=== PATIENT | male | born 1975 | race Two or more races ===

== ENCOUNTER 2017-05-27 06:18 | Emergency (ER) | payer MEDICAID ==
[~2017-05-27] VITALS: Ht 167.6 cm; Wt 104.3 kg
[~2017-05-27 06:18] MED LIST: AMLO10TA2 PO; ASPI81CH43 PO; ENAL-3 PO; MET25T PO; PRAV20TA3 PO
[2017-05-27] MEDS ORDERED: ETOMIDATE (2MG/ML) 20ML VIAL IV ONE ×2 (06:30→06:45)
[2017-05-27] MEDS ORDERED: SUCCINYLCHOLINE CHLORIDE 20 MG/ML 10ML VIAL IV ONE ×2 (06:30→06:45)
[2017-05-27] MEDS ORDERED: PROPOFOL 100 ML IV ONE (06:31)
[2017-05-27] MEDS ORDERED: NICARDIPINE 25MG/250ML BAG KIT 250 ML IV ONE (06:32)
[2017-05-27] MEDS ORDERED: PROPOFOL 100 ML IV SCH (06:43)
[2017-05-27] MEDS ORDERED: NICARDIPINE 25MG/250ML BAG KIT 250 ML IV SCH ×3 (06:45→08:00)
[2017-05-27 06:53] LABS: Basophils # (auto) 0 uL; Basophils % (auto) 0.4 % (0.0-2.0); CONDITION Y; Eosinophils # (auto) 0.2 uL; Eosinophils % (auto) 2.5 % (0.0-7.0); Hematocrit 44.8 % (41.0-53.0); Hemoglobin 15.4 g/dL (13.5-17.5); Lymphocytes # (auto) 1.9 uL; Lymphocytes % (auto) 23.5 % (10.0-50.0); Mean Corpuscular Hemoglobin 32.7 pg (28.0-32.0); Mean Corpuscular Hgb Conc. 34.3 g/dL (32.0-36.0); Mean Corpuscular Volume 95.1 fL (80.0-100.0); Mean Platelet Volume 8.1 fL (6.9-10.8); Monocytes # (auto) 0.5 uL; Monocytes % (auto) 6.3 % (0.0-12.0); Neutrophils # (auto) 5.5 uL; Neutrophils % (auto) 67.3 % (37.0-80.0); Platelet Count (auto) 277 10^3/uL (140-450); Red Cell Distribution Width 13.4 % (11.8-14.3); White Blood Cell 8.1 10^3/uL (4.4-10.8)
[2017-05-27 07:02] LABS: Urine Bilirubin Negative (Negative); Urine Blood TRACE /uL (Negative); Urine Color Yellow (Yellow); Urine Glucose 2+ mg/dL (Normal); Urine Ketone Negative (Negative); Urine Nitrite Negative (Negative); Urine RBC 1 /hpf (0 - 3); Urine Urobilinogen Normal (Negative); Urine pH 7.5 (5.0-8.0)
[2017-05-27 07:11] LABS: Albumin 3.8 g/dL (3.4-5.0); Anion Gap 10 (5-15); Aspartate Aminotransferase 16 U/L (15-37); BUN/Creatinine Ratio 11.8; Blood Urea Nitrogen 13 mg/dL (7-18); Calcium 8.7 mg/dL (8.5-10.1); Carbon Dioxide 25 mmol/L (21-32); Chloride 104 mmol/L (98-107); GFR African American 96 mL/min; GFR Non-African American 79 mL/min; Glucose 176 mg/dL (74-106); Magnesium 2.3 mg/dL (1.6-2.6); Sodium 139 mmol/L (136-145)
[2017-05-27 07:16] VITALS: BP 206/135
[2017-05-27 07:16] LABS: Alkaline Phosphatase 79 U/L (45-117); Bilirubin, Total 0.5 mg/dL (0.2-1.0); Total Protein 7.6 g/dL (6.4-8.2)
[2017-05-27 07:29] LABS: INR 0.94 (0.9-1.15); Partial Thromboplastin Time 24.5 sec (22.64-33.71); Prothrombin Time 10.2 sec (9.37-12.3)
== END 2017-05-27 09:43 | disposition short-term general hospital (02) ==
LOC: ER 06:19
DX: I61.9 Nontraumatic intracerebral hemorrhage, unspecified (principal); I21.3 ST elevation (STEMI) myocardial infarction of unspecified site; E78.5 Hyperlipidemia, unspecified; I10 Essential (primary) hypertension
CPT/HCPCS: 31500; 36415; 70450; 80053; 80307; 81001; 83735; 84484; 85025; 85610; 85730; 93005; 99291; J0330; J2704; 94002

== ENCOUNTER 2018-02-13 05:23 | Inpatient (IN) | payer MEDICAID ==
[~2018-02-13] VITALS: Ht 175.3 cm; Wt 92.4 kg
[2018-02-13 06:15] LABS: Basophils # (auto) 0 uL; Basophils % (auto) 0.3 % (0.0-2.0); Eosinophils # (auto) 0.1 uL; Hematocrit 36.5 % (41.0-53.0); Hemoglobin 12.9 g/dL (13.5-17.5); Lymphocytes # (auto) 1.5 uL; Lymphocytes % (auto) 24.1 % (10.0-50.0); Mean Corpuscular Hemoglobin 32.1 pg (28.0-32.0); Mean Corpuscular Hgb Conc. 35.3 g/dL (32.0-36.0); Mean Corpuscular Volume 90.8 fL (80.0-100.0); Monocytes # (auto) 0.7 uL; Monocytes % (auto) 10.9 % (0.0-12.0); Neutrophils # (auto) 4.1 uL; Neutrophils % (auto) 63.7 % (37.0-80.0); Platelet Count (auto) 259 10^3/uL (140-450); Red Blood Cells 4.02 10^6/uL (4.5-5.90); Red Cell Distribution Width 13.2 % (11.8-14.3); White Blood Cell 6.4 10^3/uL (4.4-10.8)
[2018-02-13 06:41] LABS: Alanine Aminotransferase 16 U/L (16-61); Albumin 4.2 g/dL (3.4-5.0); Alkaline Phosphatase 86 U/L (45-117); Anion Gap 11 (5-15); Aspartate Aminotransferase 9 U/L (15-37); BUN/Creatinine Ratio 15.4; Bilirubin, Total 0.5 mg/dL (0.2-1.0); Blood Urea Nitrogen 19 mg/dL (7-18); Calcium 9.1 mg/dL (8.5-10.1); Carbon Dioxide 28 mmol/L (21-32); Chloride 106 mmol/L (98-107); GFR African American 84 mL/min; GFR Non-African American 69 mL/min; Glucose 116 mg/dL (74-106); Potassium 3.9 mmol/L (3.5-5.1); Sodium 145 mmol/L (136-145); Total Protein 8.5 g/dL (6.4-8.2)
[2018-02-13] MEDS ORDERED: SODIUM CHLORIDE 0.9% 1,000 ML IV ONE (07:07)
[2018-02-13] MEDS ORDERED: FUROSEMIDE 20 MG/2 ML VIAL IV ONE (07:15)
[2018-02-13] MEDS ORDERED: LORazepam 2MG/ML-1ML VIAL IV ONE (07:45)
[2018-02-13 08:31] LABS: Urine Bacteria NONE SEEN /hpf (None Seen); Urine Blood Negative /uL (Negative); Urine Specific Gravity 1.011 (1.001-1.035); Urine WBC <1 /hpf (0 - 3)
[2018-02-13] MEDS ORDERED: MORPHINE SULFATE 8mg/ml INJ SDV IV PRN ×2 (09:30)
[2018-02-13] MEDS ORDERED: NITROGLYCERIN 0.4 MG SL TAB SL PRN (09:30)
[2018-02-13] MEDS ORDERED: LORazepam 2MG/ML-1ML VIAL IV PRN (09:30)
[2018-02-13] MEDS ORDERED: LACTULOSE 20Gm/30ML SOLN PO PRN (09:30)
[2018-02-13] MEDS: SODIUM CHLORIDE 0.9% 1,000 ML IV SCH ×2 (09:36→21:53)
[2018-02-13 09:39] LABS: Alcohol, Urine < 3.0 mg/dL (0-5); Amphetamine Screen, Urine NEGATIVE (NEGATIVE); Barbiturate Scree,Urine NEGATIVE (NEGATIVE); Benzodiazephine Screen, Urine POSITIVE (NEGATIVE); Cannabinoid Screen, Urine POSITIVE (NEGATIVE); Cocaine Screen, Urine NEGATIVE (NEGATIVE); Opiate Scree,Urine NEGATIVE (NEGATIVE); Phencyclidine Screen, Urine NEGATIVE (NEGATIVE)
[2018-02-13 09:53] LABS: Folate (Folic Acid) 22.72 ng/mL (5.38-24)
[2018-02-13] MEDS ORDERED: ASPirin 81 mg TAB PO SCH (10:00)
[2018-02-13] MEDS: PRAVASTATIN SODIUM 20 MG TAB PO SCH (10:11)
[2018-02-13] MEDS: ENOXAPARIN SOD 40 MG/0.4 ML SYRINGE SC SCH (10:11)
[2018-02-13] MEDS: ENALAPRIL MALEATE 10 MG TAB PO SCH (10:11)
[2018-02-13] MEDS: amLODIPine BESYLATE 5 MG TAB PO SCH (10:11)
[2018-02-13] MEDS: METOPROLOL TARTRATE 25 MG TAB PO SCH ×2 (10:11→21:03)
[2018-02-13 11:15] VITALS: BP 145/82
[2018-02-13] MEDS: HYDROcodone-ACET 5/325MG TAB PO PRN ×2 (12:28→23:20)
[2018-02-13] MEDS ORDERED: CLON0.3D4 PO (12:44)
[2018-02-13] MEDS ORDERED: DIPH25CA66 PO (12:44)
[2018-02-13] MEDS ORDERED: MINO10TA2 PO (12:44)
[2018-02-13] MEDS ORDERED: CARV25TA55 PO (12:45)
[2018-02-13] MEDS ORDERED: KEP500T PO (12:46)
[2018-02-13] MEDS ORDERED: AML5T GT (12:47)
[2018-02-13] MEDS ORDERED: HYDR-4298 PO (13:01)
[2018-02-13] MEDS ORDERED: HYDR-4683 PO (13:01)
[2018-02-13] MEDS: KETOROLAC TROMETH 30 MG/ML 1ML VIAL IV PRN ×2 (14:29→23:19)
[2018-02-13 17:33] VITALS: BP 132/81
[2018-02-13] MEDS: LORazepam 0.5 MG TAB PO PRN (18:30)
[2018-02-13] MEDS: ACETAMINOPHEN 500 MG TAB PO PRN (21:03)
[2018-02-13] MEDS: TEMAZEPAM 15 MG CAP PO PRN (21:03)
[2018-02-13] MEDS: LEVETIRACETAM 500 MG TAB PO SCH (21:05)
[2018-02-13 22:00] VITALS: BP 159/82
[2018-02-13] MEDS: PROMETHAZINE HCL 25 MG/ML 1ML IV PRN (23:19)
[2018-02-14] MEDS: LORazepam 0.5 MG TAB PO PRN (00:49)
[2018-02-14] MEDS ORDERED: LORazepam 2MG/ML-1ML VIAL IV ONE (01:15)
[2018-02-14] MEDS ORDERED: diphenhdrAMINE HCL 50 MG/1 ML VL IM ONE (01:15)
[2018-02-14 05:00] VITALS: BP 165/91
[2018-02-14] MEDS: PROMETHAZINE HCL 25 MG/ML 1ML IV PRN (05:19)
[2018-02-14] MEDS: KETOROLAC TROMETH 30 MG/ML 1ML VIAL IV PRN (05:20)
[2018-02-14] MEDS: LABETALOL HCL 5 MG/ML ML 20ML VIAL IV PRN ×4 (06:19→19:43)
[2018-02-14 08:50] VITALS: BP 144/48
[2018-02-14 12:28] VITALS: BP 185/91
[2018-02-14] MEDS: amLODIPine BESYLATE 5 MG TAB PO SCH (12:50)
[2018-02-14] MEDS: LEVETIRACETAM 500 MG TAB PO SCH ×2 (12:50→20:10)
[2018-02-14] MEDS: ENALAPRIL MALEATE 10 MG TAB PO SCH (12:50)
[2018-02-14] MEDS: METOPROLOL TARTRATE 25 MG TAB PO SCH ×2 (12:50→20:11)
[2018-02-14] MEDS: PRAVASTATIN SODIUM 20 MG TAB PO SCH (12:50)
[2018-02-14] MEDS: SODIUM CHLORIDE 0.9% 1,000 ML IV SCH ×2 (12:51→22:53)
[2018-02-14] MEDS: ENOXAPARIN SOD 40 MG/0.4 ML SYRINGE SC SCH (12:51)
[2018-02-14] MEDS: DIAZEPAM 5 MG TAB PO SCH ×2 (14:09→21:24)
[2018-02-14 15:38] VITALS: BP 129/81
[2018-02-14 17:00] VITALS: BP_SYST 128; BP_SYST 162; BP_DIAS 106; BP_DIAS 78
[2018-02-14] MEDS: TEMAZEPAM 15 MG CAP PO PRN (20:10)
[2018-02-14] MEDS: ACETAMINOPHEN 500 MG TAB PO PRN (20:10)
[2018-02-14] MEDS: HYDROcodone-ACET 5/325MG TAB PO PRN (20:11)
[2018-02-14 22:00] VITALS: BP 149/98
[2018-02-15 05:00] VITALS: BP 178/128
[2018-02-15] MEDS: LABETALOL HCL 5 MG/ML ML 20ML VIAL IV PRN ×2 (05:08→12:35)
[2018-02-15] MEDS: ACETAMINOPHEN 500 MG TAB PO PRN (05:09)
[2018-02-15] MEDS: HYDROcodone-ACET 5/325MG TAB PO PRN ×2 (05:09→13:33)
[2018-02-15 05:46] VITALS: BP 162/112
[2018-02-15] MEDS: amLODIPine BESYLATE 5 MG TAB PO SCH (05:49)
[2018-02-15 06:41] VITALS: BP 155/102
[2018-02-15 09:00] VITALS: BP 198/113
[2018-02-15] MEDS: ENOXAPARIN SOD 40 MG/0.4 ML SYRINGE SC SCH (09:11)
[2018-02-15] MEDS: METOPROLOL TARTRATE 25 MG TAB PO SCH (09:11)
[2018-02-15] MEDS: ENALAPRIL MALEATE 10 MG TAB PO SCH (09:12)
[2018-02-15] MEDS: LEVETIRACETAM 500 MG TAB PO SCH ×2 (09:12→20:23)
[2018-02-15] MEDS: DIAZEPAM 5 MG TAB PO SCH ×2 (09:23→20:24)
[2018-02-15] MEDS: SODIUM CHLORIDE 0.9% 1,000 ML IV SCH ×2 (11:23→20:27)
[2018-02-15 13:00] VITALS: BP 177/121
[2018-02-15] MEDS ORDERED: cloNIDine HCL 0.1 MG TAB PO ONE (15:30)
[2018-02-15] MEDS ORDERED: MINOXIDIL 10 MG TAB PO ONE (15:30)
[2018-02-15] MEDS ORDERED: MORPHINE SULF INJ 2 MG/ML SYRINGE 1ML IV PRN ×2 (15:30→15:45)
[2018-02-15] MEDS ORDERED: CARVEDILOL 12.5 MG TAB PO ONE (15:30)
[2018-02-15 17:00] VITALS: BP 147/92
[2018-02-15] MEDS: cloNIDine HCL 0.1 MG TAB PO SCH (20:24)
[2018-02-15] MEDS: PRAVASTATIN SODIUM 20 MG TAB PO SCH (20:25)
[2018-02-15] MEDS: GABAPENTIN 100 MG CAP PO SCH (20:25)
[2018-02-15] MEDS: MINOXIDIL 10 MG TAB PO SCH (20:26)
[2018-02-15] MEDS: CARVEDILOL 12.5 MG TAB PO SCH (22:00)
[2018-02-16 04:00] VITALS: BP 156/72
[2018-02-16] MEDS: HYDROcodone-ACET 5/325MG TAB PO PRN ×2 (05:40→19:39)
[2018-02-16] MEDS: ACETAMINOPHEN 500 MG TAB PO PRN (05:40)
[2018-02-16] MEDS: GABAPENTIN 100 MG CAP PO SCH ×3 (05:40→22:06)
[2018-02-16 08:43] VITALS: BP 143/81
[2018-02-16] MEDS: ENOXAPARIN SOD 40 MG/0.4 ML SYRINGE SC SCH (09:01)
[2018-02-16] MEDS: MINOXIDIL 10 MG TAB PO SCH ×2 (09:02→22:07)
[2018-02-16] MEDS: ENALAPRIL MALEATE 10 MG TAB PO SCH (09:02)
[2018-02-16] MEDS: LEVETIRACETAM 500 MG TAB PO SCH ×2 (09:02→22:09)
[2018-02-16] MEDS: amLODIPine BESYLATE 5 MG TAB PO SCH (09:03)
[2018-02-16] MEDS: DIAZEPAM 5 MG TAB PO SCH ×2 (09:03→22:12)
[2018-02-16] MEDS: cloNIDine HCL 0.1 MG TAB PO SCH ×2 (09:03→22:07)
[2018-02-16] MEDS: CARVEDILOL 12.5 MG TAB PO SCH ×2 (09:04→22:08)
[2018-02-16 12:43] VITALS: BP 104/66
[2018-02-16] MEDS: SODIUM CHLORIDE 0.9% 1,000 ML IV SCH (14:47)
[2018-02-16 17:11] VITALS: BP 106/63
[2018-02-16 20:56] VITALS: BP 124/75
[2018-02-16] MEDS: PRAVASTATIN SODIUM 20 MG TAB PO SCH (22:08)
[2018-02-17] MEDS: SODIUM CHLORIDE 0.9% 1,000 ML IV SCH ×2 (02:06→14:04)
[2018-02-17 04:51] VITALS: BP 112/83
[2018-02-17] MEDS: GABAPENTIN 100 MG CAP PO SCH ×2 (05:56→14:21)
[2018-02-17] MEDS: HYDROcodone-ACET 5/325MG TAB PO PRN (05:57)
[2018-02-17 09:00] VITALS: BP 132/75
[2018-02-17] MEDS ORDERED: GAB100C PO (10:26)
[2018-02-17] MEDS: LEVETIRACETAM 500 MG TAB PO SCH (10:33)
[2018-02-17] MEDS: ENOXAPARIN SOD 40 MG/0.4 ML SYRINGE SC SCH (10:33)
[2018-02-17] MEDS: CARVEDILOL 12.5 MG TAB PO SCH (10:34)
[2018-02-17] MEDS: ENALAPRIL MALEATE 10 MG TAB PO SCH (10:35)
[2018-02-17] MEDS: amLODIPine BESYLATE 5 MG TAB PO SCH (10:35)
[2018-02-17] MEDS: MINOXIDIL 10 MG TAB PO SCH (10:36)
[2018-02-17] MEDS: cloNIDine HCL 0.1 MG TAB PO SCH (10:36)
[2018-02-17] MEDS: DIAZEPAM 5 MG TAB PO SCH (12:21)
[2018-02-17 12:28] VITALS: BP 120/76
[2018-02-17 13:59] VITALS: BP 120/76
[2018-02-17 17:00] VITALS: BP 128/74
== END 2018-02-17 17:45 | disposition home health service (06) | DRG 52 ==
LOC: EDBD 05:23 → ER 05:26 → TELE 05:27 → TELE-EAST 11:36
PROVIDERS: ADMIT Internal Medicine; ATTEND Internal Medicine
DX: G93.41 Metabolic encephalopathy (principal); I42.9 Cardiomyopathy, unspecified; F01.50 Vascular dementia, unspecified severity, without behavioral disturbance, psychotic disturbance, mood disturbance, and anxiety; G93.89 Other specified disorders of brain; G40.409 Other generalized epilepsy and epileptic syndromes, not intractable, without status epilepticus; E78.5 Hyperlipidemia, unspecified; F12.90 Cannabis use, unspecified, uncomplicated; F15.93 Other stimulant use, unspecified with withdrawal; F17.200 Nicotine dependence, unspecified, uncomplicated; F41.9 Anxiety disorder, unspecified; I10 Essential (primary) hypertension; I25.10 Atherosclerotic heart disease of native coronary artery without angina pectoris; I69.351 Hemiplegia and hemiparesis following cerebral infarction affecting right dominant side; Z79.899 Other long term (current) drug therapy; Z82.3 Family history of stroke; Z82.49 Family history of ischemic heart disease and other diseases of the circulatory system; Z83.3 Family history of diabetes mellitus; Z98.2 Presence of cerebrospinal fluid drainage device; Z79.82 Long term (current) use of aspirin
CPT/HCPCS: 36415; 70450; 71045; 80053; 80307; 80320; 81001; 82550; 82607; 82746; 83605; 83880; 84443; 84484; 85025; 85652; 87040; 87081; 96372; 96374; 96375; 97110; 97116; 97163; 97530; J1885

== ENCOUNTER 2019-07-14 22:12 | Emergency (ER) | payer MEDICAID ==
[~2019-07-14] VITALS: Ht 170.2 cm; Wt 83.9 kg
[~2019-07-14 22:12] MED LIST changes: +AMLO10TA13 PO; -AMLO10TA2 PO; -ASPI81CH43 PO; +CARV25TA55 PO; +CLON0.3D4 PO; -ENAL-3 PO; +ENAL10TA2 PO; +GAB100C PO; +HYDR-4298 PO; +HYDR-4833 PO; +KEP500T PO; -MET25T PO; +MINO10TA2 PO
[2019-07-14 22:25] VITALS: BP 134/77
== END 2019-07-15 00:38 | disposition left against medical advice (07) ==
LOC: ER 22:12
DX: I10 Essential (primary) hypertension (principal); F41.9 Anxiety disorder, unspecified; Z53.21 Procedure and treatment not carried out due to patient leaving prior to being seen by health care provider

== ENCOUNTER 2019-07-16 10:58 | Emergency (ER) | payer MEDICAID ==
[~2019-07-16] VITALS: Ht 170.2 cm; Wt 81.6 kg
[2019-07-16 11:32] LABS: Basophils # (auto) 0 uL; Basophils % (auto) 0.3 % (0.0-2.0); Eosinophils # (auto) 0 uL; Eosinophils % (auto) 0.3 % (0.0-7.0); Hematocrit 37.5 % (41.0-53.0); Hemoglobin 12.9 g/dL (13.5-17.5); Lymphocytes # (auto) 1.2 uL; Lymphocytes % (auto) 18.2 % (10.0-50.0); Mean Corpuscular Hemoglobin 31.8 pg (28.0-32.0); Mean Corpuscular Hgb Conc. 34.3 g/dL (32.0-36.0); Mean Corpuscular Volume 92.7 fL (80.0-100.0); Monocytes # (auto) 0.5 uL; Monocytes % (auto) 7.4 % (0.0-12.0); Neutrophils # (auto) 4.7 uL; Neutrophils % (auto) 73.8 % (37.0-80.0); Platelet Count (auto) 198 10^3/uL (140-450); Red Blood Cells 4.05 10^6/uL (4.5-5.90); Red Cell Distribution Width 12.8 % (11.8-14.3); White Blood Cell 6.3 10^3/uL (4.4-10.8)
[2019-07-16] MEDS ORDERED: SODIUM CHLORIDE 0.9% 500 ML IV ONE (11:34)
[2019-07-16 11:41] LABS: Calcium 8.7 mg/dL (8.5-10.1)
[2019-07-16 11:47] LABS: Albumin 4.1 g/dL (3.4-5.0); BUN/Creatinine Ratio 21.9; Bilirubin, Total 0.4 mg/dL (0.2-1.0); Total Protein 7.5 g/dL (6.4-8.2)
[2019-07-16 14:03] LABS: Urine Bacteria NONE SEEN /hpf (None Seen); Urine Blood Negative /uL (Negative); Urine Mucus FEW (None Seen); Urine Specific Gravity 1.022 (1.001-1.035); Urine WBC 1 /hpf (0 - 3)
[2019-07-16 16:00] VITALS: BP 130/85
== END 2019-07-16 16:52 | disposition home or self-care (01) ==
LOC: ER 10:58
DX: B34.9 Viral infection, unspecified (principal); E78.5 Hyperlipidemia, unspecified; I10 Essential (primary) hypertension; I25.2 Old myocardial infarction; Z86.73 Personal history of transient ischemic attack (TIA), and cerebral infarction without residual deficits; Z79.899 Other long term (current) drug therapy
CPT/HCPCS: 36415; 71045; 80053; 81001; 85025; 93005; 94761; 99284; J7040

== ENCOUNTER 2019-08-31 11:13 | Emergency (ER) | payer MEDICAID ==
[~2019-08-31] VITALS: Ht 170.2 cm; Wt 80.7 kg
[2019-08-31 13:08] LABS: Basophils # (auto) 0 uL; Basophils % (auto) 0.6 % (0.0-2.0); Eosinophils # (auto) 0 uL; Eosinophils % (auto) 0.4 % (0.0-7.0); Hematocrit 39.2 % (41.0-53.0); Hemoglobin 13.6 g/dL (13.5-17.5); Lymphocytes # (auto) 1.3 uL; Lymphocytes % (auto) 20.9 % (10.0-50.0); Mean Corpuscular Hemoglobin 32.2 pg (28.0-32.0); Mean Corpuscular Hgb Conc. 34.7 g/dL (32.0-36.0); Mean Corpuscular Volume 92.6 fL (80.0-100.0); Monocytes # (auto) 0.6 uL; Monocytes % (auto) 8.6 % (0.0-12.0); Neutrophils # (auto) 4.5 uL; Neutrophils % (auto) 69.5 % (37.0-80.0); Platelet Count (auto) 224 10^3/uL (140-450); Red Blood Cells 4.24 10^6/uL (4.5-5.90); Red Cell Distribution Width 13.2 % (11.8-14.3); White Blood Cell 6.4 10^3/uL (4.4-10.8)
[2019-08-31 13:49] LABS: Anion Gap 7 (5-15); BUN/Creatinine Ratio 13.5; Blood Alcohol < 3.0 mg/dL (0-5); Blood Urea Nitrogen 12 mg/dL (7-18); Carbon Dioxide 26 mmol/L (21-32); Chloride 109 mmol/L (98-107); GFR African American 121 mL/min; GFR Non-African American 100 mL/min; Glucose 131 mg/dL (74-106); Potassium 3.9 mmol/L (3.5-5.1); Sodium 142 mmol/L (136-145)
[2019-08-31] MEDS ORDERED: ACETAMINOPHEN 325 MG TAB PO ONE (17:45)
[2019-08-31 18:45] VITALS: BP 135/89
== END 2019-08-31 19:48 | disposition home or self-care (01) ==
LOC: ER 11:13
DX: F39 Unspecified mood [affective] disorder (principal); I69.30 Unspecified sequelae of cerebral infarction; R45.851 Suicidal ideations; F41.9 Anxiety disorder, unspecified; F32.9 Major depressive disorder, single episode, unspecified; E78.5 Hyperlipidemia, unspecified; I10 Essential (primary) hypertension; I25.2 Old myocardial infarction
CPT/HCPCS: 36415; 80048; 80320; 85025

== ENCOUNTER 2019-11-28 14:15 | Emergency (ER) | payer MEDICARE, MEDICAID ==
[~2019-11-28] VITALS: Ht 170.2 cm; Wt 79.4 kg
[2019-11-28 14:52] VITALS: BP 129/85
[2019-11-28] MEDS ORDERED: KETOROLAC TROMETH 60MG/2ML VIAL IM ONE (15:45)
[2019-11-28] MEDS ORDERED: METHOCARBAMOL 500 MG TAB PO ONE (15:45)
== END 2019-11-28 16:44 | disposition home or self-care (01) ==
LOC: ER 14:15
DX: M51.16 Intervertebral disc disorders with radiculopathy, lumbar region (principal); M54.12 Radiculopathy, cervical region; G89.4 Chronic pain syndrome; I10 Essential (primary) hypertension; E78.5 Hyperlipidemia, unspecified
CPT/HCPCS: 72040; 72100; 96372; 99284; J1885

== ENCOUNTER 2020-02-08 14:32 | Emergency (ER) | payer MEDICARE, MEDICAID ==
[~2020-02-08] VITALS: Ht 170.2 cm; Wt 79.8 kg
[2020-02-08 14:57] LABS: Basophils # (auto) 0 10 ^3/uL (0-0.2); Basophils % (auto) 0.4 % (0.0-2.0); Eosinophils # (auto) 0.1 10 ^3/uL (0-0.8); Eosinophils % (auto) 1.1 % (0.0-7.0); Hematocrit 39.6 % (41.0-53.0); Hemoglobin 13.8 g/dL (13.5-17.5); Lymphocytes # (auto) 2.3 10 ^3/uL (0.4-5.4); Lymphocytes % (auto) 37.9 % (10.0-50.0); Mean Corpuscular Hemoglobin 32.1 pg (28.0-32.0); Mean Corpuscular Hgb Conc. 34.8 g/dL (32.0-36.0); Mean Corpuscular Volume 92.4 fL (80.0-100.0); Monocytes # (auto) 0.6 10 ^3/uL (0-1.3); Monocytes % (auto) 10.7 % (0.0-12.0); Neutrophils % (auto) 49.9 % (37.0-80.0); Platelet Count (auto) 216 10^3/uL (140-450); Red Blood Cells 4.29 10^6/uL (4.5-5.90); Red Cell Distribution Width 12.6 % (11.8-14.3)
[2020-02-08 15:10] VITALS: BP 140/91
[2020-02-08 15:18] LABS: Alanine Aminotransferase 23 U/L (16-61); Albumin 4.1 g/dL (3.4-5.0); Anion Gap 5 (5-15); Aspartate Aminotransferase 7 U/L (15-37); BUN/Creatinine Ratio 16.2; Blood Urea Nitrogen 16 mg/dL (7-18); Carbon Dioxide 28 mmol/L (21-32); Chloride 106 mmol/L (98-107); GFR African American 107 mL/min; GFR Non-African American 88 mL/min; Glucose 116 mg/dL (74-106); Potassium 3.8 mmol/L (3.5-5.1); Sodium 139 mmol/L (136-145)
[2020-02-08 15:23] LABS: Alkaline Phosphatase 71 U/L (45-117); Bilirubin, Total 0.8 mg/dL (0.2-1.0); Total Protein 7.6 g/dL (6.4-8.2)
== END 2020-02-08 16:11 | disposition home or self-care (01) ==
LOC: ER 14:42
DX: G45.9 Transient cerebral ischemic attack, unspecified (principal); R53.1 Weakness; I10 Essential (primary) hypertension; E78.5 Hyperlipidemia, unspecified; E11.9 Type 2 diabetes mellitus without complications; Z95.1 Presence of aortocoronary bypass graft; Z86.73 Personal history of transient ischemic attack (TIA), and cerebral infarction without residual deficits; Z79.899 Other long term (current) drug therapy
CPT/HCPCS: 36415; 70450; 71045; 80053; 84484; 85025

== ENCOUNTER 2022-01-19 10:50 | Emergency (ER) | payer OTHER, MEDICAID ==
[~2022-01-19] VITALS: Ht 170.2 cm; Wt 91.2 kg
[~2022-01-19 10:50] MED LIST changes: +AMLO-496 PO; -AMLO10TA13 PO; +ENAL10TA13 PO; -ENAL10TA2 PO
[2022-01-19 12:25] LABS: Basophils # (auto) 0 10 ^3/uL (0-0.2); Basophils % (auto) 0.2 % (0.0-2.0); Eosinophils # (auto) 0.1 10 ^3/uL (0-0.8); Eosinophils % (auto) 1.5 % (0.0-7.0); Hematocrit 39.9 % (41.0-53.0); Lymphocytes # (auto) 1.5 10 ^3/uL (0.4-5.4); Lymphocytes % (auto) 23.4 % (10.0-50.0); Mean Corpuscular Hemoglobin 33.9 pg (28.0-32.0); Mean Corpuscular Hgb Conc. 35.1 g/dL (32.0-36.0); Mean Corpuscular Volume 96.7 fL (80.0-100.0); Monocytes # (auto) 0.6 10 ^3/uL (0-1.3); Monocytes % (auto) 9.8 % (0.0-12.0); Neutrophils # (auto) 4.1 10 ^3/uL (1.6-8.6); Neutrophils % (auto) 65.1 % (37.0-80.0); Red Blood Cells 4.13 10^6/uL (4.5-5.90); Red Cell Distribution Width 12.5 % (11.8-14.3); White Blood Cell 6.3 10^3/uL (4.4-10.8)
[2022-01-19 12:43] LABS: Albumin 3.9 g/dL (3.4-5.0); Calcium 9.1 mg/dL (8.5-10.1)
[2022-01-19 12:46] LABS: BUN/Creatinine Ratio 14.2; Bilirubin, Total 0.5 mg/dL (0.2-1.0); Total Protein 7.2 g/dL (6.4-8.2)
[2022-01-19 12:53] VITALS: BP 169/106
== END 2022-01-19 13:56 | disposition left against medical advice (07) ==
LOC: ER 10:50
DX: G89.29 Other chronic pain (principal); M79.662 Pain in left lower leg; M79.661 Pain in right lower leg; M79.602 Pain in left arm; M79.601 Pain in right arm; E78.5 Hyperlipidemia, unspecified; I10 Essential (primary) hypertension; Z86.73 Personal history of transient ischemic attack (TIA), and cerebral infarction without residual deficits
CPT/HCPCS: 36415; 80053; 82550; 82553; 85025

== ENCOUNTER 2022-02-06 15:43 | Emergency (ER) | payer OTHER, MEDICAID ==
[~2022-02-06] VITALS: Ht 170.2 cm; Wt 90.7 kg
[2022-02-06 18:47] LABS: Basophils # (auto) 0 10 ^3/uL (0-0.2); Basophils % (auto) 0.7 % (0.0-2.0); Eosinophils # (auto) 0.1 10 ^3/uL (0-0.8); Eosinophils % (auto) 1.1 % (0.0-7.0); Hematocrit 40.9 % (41.0-53.0); Hemoglobin 14.2 g/dL (13.5-17.5); Lymphocytes # (auto) 1.7 10 ^3/uL (0.4-5.4); Lymphocytes % (auto) 25.6 % (10.0-50.0); Mean Corpuscular Hemoglobin 33.2 pg (28.0-32.0); Mean Corpuscular Hgb Conc. 34.7 g/dL (32.0-36.0); Mean Corpuscular Volume 95.8 fL (80.0-100.0); Monocytes # (auto) 0.7 10 ^3/uL (0-1.3); Monocytes % (auto) 10.4 % (0.0-12.0); Neutrophils # (auto) 4.1 10 ^3/uL (1.6-8.6); Neutrophils % (auto) 62.2 % (37.0-80.0); Red Blood Cells 4.26 10^6/uL (4.5-5.90); Red Cell Distribution Width 12.2 % (11.8-14.3); White Blood Cell 6.5 10^3/uL (4.4-10.8)
[2022-02-06 18:48] LABS: Albumin 3.9 g/dL (3.4-5.0); Calcium 8.9 mg/dL (8.5-10.1); Magnesium 2.3 mg/dL (1.6-2.6); Potassium 3.8 mmol/L (3.5-5.1)
[2022-02-06 18:50] LABS: BUN/Creatinine Ratio 10.8
[2022-02-06 18:53] LABS: Bilirubin, Total 0.5 mg/dL (0.2-1.0); INR 1.05 (0.9-1.15); Total Protein 7.3 g/dL (6.4-8.2)
[2022-02-06] MEDS ORDERED: cloNIDine HCL 0.1 MG TAB PO ONE (20:30)
[2022-02-06] MEDS ORDERED: BUSP5TAB51 PO (20:33)
[2022-02-06 20:40] VITALS: BP 147/93
== END 2022-02-07 02:01 | disposition home or self-care (01) ==
LOC: ER 15:43
DX: R25.2 Cramp and spasm (principal); M79.10 Myalgia, unspecified site; E78.5 Hyperlipidemia, unspecified; I10 Essential (primary) hypertension; Z86.73 Personal history of transient ischemic attack (TIA), and cerebral infarction without residual deficits
CPT/HCPCS: 36415; 80053; 82550; 83735; 84484; 85025; 85610; 93005